=== PATIENT | female | born 1955 | race Caucasian/White ===

== ENCOUNTER 2023-05-31 22:06 | Emergency (ER) | payer MEDICARE, OTHER ==
[2023-05-31] MEDS ORDERED: Lidocaine Viscous Sol 2% 15 ml UD Cup ONE (22:39)
== END 2023-05-31 23:05 | disposition home or self-care (01) ==
LOC: NAV ERS 22:06
DX: U07.1 COVID-19 (principal)
CPT/HCPCS: 87635; 99283